=== PATIENT | male | born 1955 | race Caucasian/White ===

== ENCOUNTER → 2018-12-12 | Outpatient (CLI) | payer OTHER ==
[2018-12-12 18:20] LABS: Microalb/Creat Ratio UR, Rand 27.626 mg/g (0.000-30.000); Microalbumin, Random Urine 38.4 mg/L (0.000-20.000)
== END | disposition home or self-care (01) ==
LOC: LAB SHORT 16:07 → LAB 16:07
PROVIDERS: Internal Medicine
DX: Z12.5 Encounter for screening for malignant neoplasm of prostate (principal); E11.9 Type 2 diabetes mellitus without complications; I10 Essential (primary) hypertension; E83.51 Hypocalcemia; Z79.899 Other long term (current) drug therapy
CPT/HCPCS: 82043; 82570

== ENCOUNTER → 2019-03-12 | Outpatient (CLI) | payer OTHER | END | disposition home or self-care (01) | LOC: LAB SHORT 10:27 → PLD 10:27 | DX: D48.5 Neoplasm of uncertain behavior of skin (principal) | CPT/HCPCS: 88305 ==

== ENCOUNTER 2020-07-29 08:46 | Day surgery (SDC) | payer MEDICARE, BC ==
[~2020-07-29] VITALS: Ht 180.3 cm; Wt 141.4 kg
[~2020-07-29 08:46] MED LIST: AMLO10 PO; ATOR20 PO; Catapres-Tts 11 EACH PO; FURO20 PO; LOSA50 PO; METF500 PO; MOBIC15 MG PO
--- NOTE | 2020-07-29 11:45 | NUR ---
07/29/20 1145 Kalpana Vallecillo 1ST IV ATTEMPT BY CAROLIN NEIL IN RAC UNSUCCESSFUL. 2ND IV ATTEMPT BY DESTINY CHU IN LAC UNSUCCESFUL. 3RD IV ATTEMPT BY DESTINY CHU IN LH UNSUCCESSFUL. 4TH IV ATTEMPT BY DESTINY CHU IN RIGHT FOOT INFILTRATED 5TH IV ATTEMPT BY DESTINY CHU IN RAC UNSUCCESSFUL 6TH IV ATTEMPT BY DESTINY CONTRERAS IN LEFT FOOT INFILTRATED 7TH IV ATTEMPT BY DESTINY CONTRERAS IN LEFT FOOT UNSUCCESSFUL 8TH IV ATTEMPT BY DESTINY CONTRERAS IN RIGHT FOOT UNSUCCESSFUL 9TH IV ATTEMPT BY CAROLIN CASTRO IN RIGHT FOOT SUCCESSFUL. PATIENT TOLERATED ALL IV ATTEMPTS WELL.
== END 2020-07-29 12:24 | disposition home or self-care (01) ==
LOC: ORSCSDS 08:46
PROVIDERS: Internal Medicine Gastroenterology
PROC: 0DBM8ZX Excision of Descending Colon, Via Natural or Artificial Opening Endoscopic, Diagnostic (ICD-10-PCS; principal; 2020-07-29 11:00)
DX: Z12.11 Encounter for screening for malignant neoplasm of colon (principal); D12.4 Benign neoplasm of descending colon; K57.30 Diverticulosis of large intestine without perforation or abscess without bleeding; K64.8 Other hemorrhoids; I10 Essential (primary) hypertension; E78.5 Hyperlipidemia, unspecified; E11.9 Type 2 diabetes mellitus without complications; G47.33 Obstructive sleep apnea (adult) (pediatric); Z86.73 Personal history of transient ischemic attack (TIA), and cerebral infarction without residual deficits; E66.01 Morbid (severe) obesity due to excess calories; Z68.41 Body mass index [BMI] 40.0-44.9, adult; Z79.84 Long term (current) use of oral hypoglycemic drugs; Z79.899 Other long term (current) drug therapy
CPT/HCPCS: 82947; 88305; J2704; J7120